=== PATIENT | female | born 1960 | race Caucasian/White ===

== ENCOUNTER → 2016-05-05 | Outpatient (CLI) | payer BC ==
[2016-05-05 19:11] LABS: ALT 50 U/L (9-52); AST 26 U/L (14-36); Creatine Kinase 307 U/L (30-135); GGT 18 U/L (12-43)
[2016-05-05 20:04] LABS: Hepatitis B Surface Ag Index 0.06
[2016-05-05 20:09] LABS: Hepatitis B Core IgM Index 0.04
[2016-05-05 20:21] LABS: Hepatitis C Virus IgG Index 0.01
[2016-05-05 20:23] LABS: Hepatitis C Virus IgG Ab Negative (Negative)
== END | disposition home or self-care (01) ==
LOC: MMGSC 17:12
PROVIDERS: ATTEND Family Medicine
DX: E55.9 Vitamin D deficiency, unspecified (principal); R79.89 Other specified abnormal findings of blood chemistry
CPT/HCPCS: 36415; 80074; 82306; 82550; 82977; 84450; 84460

== ENCOUNTER → 2016-06-03 | Outpatient (CLI) | payer BC ==
[2016-06-03 18:43] LABS: Basophils % (A) 1 %; CH 29.6; CHCM 32.4; Eosinophils # (A) 0.1 k/uL (0-0.7); Eosinophils % (A) 3 %; HCT 41.4 % (34.0-46.0); HDW 2.38; Luc # (Auto) 0.09; Luc % (Auto) 2; Lymphocytes # (A) 1.1 k/uL (1.0-4.8); Lymphocytes % (A) 24 %; MCH 28.9 pg (25.0-35.0); MCHC 31.4 g/dL (31.0-37.0); MCV 91.9 fL (80.0-100.0); Mean Platelet Volume 7.8; Monocytes # (A) 0.3 k/uL (0-1.0); Monocytes % (A) 6 %; Neutrophils % (A) 65 %; RBC 4.51 m/uL (3.80-5.40); RDW 12.8 % (11.5-15.5); WBC 4.6 k/uL (3.8-10.6)
[2016-06-03 19:07] LABS: ALT 57 U/L (9-52); AST 36 U/L (14-36); Alkaline Phosphatase 79 U/L (38-126); Anion Gap 10 mmol/L; Blood Urea Nitrogen 15 mg/dL (7-17); Calcium 9.2 mg/dL (8.4-10.2); Carbon Dioxide 26 mmol/L (22-30); Chloride 107 mmol/L (98-107); Cholesterol 229 mg/dL (<200); Creatine Kinase 314 U/L (30-135); Glucose 90 mg/dL (74-99); HDL Cholesterol 54 mg/dL (40-60); Non-African American GFR(MDRD) >60 (>60 ml/min/1.73 sqM); Potassium 4.8 mmol/L (3.5-5.1); Sodium 143 mmol/L (137-145); Total Bilirubin 0.7 mg/dL (0.2-1.3); Total Protein 6.8 g/dL (6.3-8.2); Triglycerides 189 mg/dL (<150)
== END | disposition home or self-care (01) ==
LOC: MMGSC 09:42
PROVIDERS: ATTEND Family Medicine
DX: Z00.00 Encounter for general adult medical examination without abnormal findings (principal); R79.89 Other specified abnormal findings of blood chemistry
CPT/HCPCS: 36415; 80053; 80061; 82550; 84439; 84443; 85025

== ENCOUNTER → 2016-09-01 | Outpatient (CLI) | payer BC ==
--- NOTE | 2016-09-07 11:32 | MM ---
Reason for exam: screening (asymptomatic). Last mammogram was performed 9 months ago. History: Patient is postmenopausal. Family history of breast cancer in maternal grandmother at age 70 and breast cancer in mother at age 80. Physical Findings: A clinical breast exam by your physician is recommended on an annual basis and results should be correlated with mammographic findings. MG 3D Screening Mammo W/Cad Bilateral CC and MLO view(s) were taken. Prior study comparison: November 21, 2015, mammogram, performed at [facility]. September 05, 2013, mammogram, performed at [facility]. September 02, 2012, mammogram, performed at [facility]. There are scattered fibroglandular densities. There is chronic nodularity bilaterally. There is no discrete abnormality. ASSESSMENT: Benign, BI-RAD 2 RECOMMENDATION: Routine screening mammogram of both breasts in 1 year.
== END | disposition home or self-care (01) ==
LOC: RADMAMWWP 14:01
PROVIDERS: ATTEND Family Medicine
DX: Z12.31 Encounter for screening mammogram for malignant neoplasm of breast (principal); Z80.3 Family history of malignant neoplasm of breast
CPT/HCPCS: 77063; G0202

== ENCOUNTER → 2017-01-08 | Outpatient (CLI) | payer BC | END | disposition home or self-care (01) | LOC: MMGSC 11:52 | PROVIDERS: ATTEND Family Medicine | DX: E55.9 Vitamin D deficiency, unspecified (principal) | CPT/HCPCS: 36415; 82306 ==

== ENCOUNTER → 2017-05-31 | Outpatient (CLI) | payer BC | END | disposition home or self-care (01) | LOC: MMGSC 17:13 | PROVIDERS: ATTEND Family Medicine | DX: N60.11 Diffuse cystic mastopathy of right breast (principal) | CPT/HCPCS: 87070; 87075; 87205 ==

== ENCOUNTER 2017-07-09 17:29 | Emergency (ER) | payer BC ==
[2017-07-09] MEDS ORDERED: SODIUM CHLORIDE 0.9% 1,000 ML IV STA (17:50)
[2017-07-09] MEDS ORDERED: ONDANSETRON 4 MG/2 ML VIAL IVP STA (17:50)
[2017-07-09] MEDS ORDERED: KETOROLAC 30 MG/ML 1 ML VIAL IVP STA (17:50)
--- NOTE | 2017-07-09 17:54 | ED ---
General Adult HPI - General Chief complaint: Back Pain/Injury Stated complaint: back pain, poss kidney stone Time Seen by Provider: 07/09/17 17:43 Source: patient, RN notes reviewed, old records reviewed Mode of arrival: ambulatory Limitations: no limitations - History of Present Illness Initial comments: This patient is a 56-year-old female presents emergency Department chief complaint of 10 days of diarrhea. She states that for the past week she's also been having some left flank pain. Patient states that she has had possibly some blood in her diarrhea. Yesterday she started having pain with urination but only occurred one time. Patient states that he's had no fever but she does feel chilled today. She states that she's not eating anything but has not had any diarrhea today. - Related Data Home Medications Medication Instructions Recorded Confirmed Albuterol Sulfate [Proair Hfa] 1 - 2 puff INHALATION RT-Q6H PRN 07/09/17 Green Tea Casselberry Extract [Green Tea 150 mg PO DAILY 07/09/17 07/09/17 Extract] Multivitamin [Multivitamins Adult 1 tab PO DAILY 07/09/17 07/09/17 Gummies] Omeprazole 20 mg PO DAILY 07/09/17 07/09/17 Ubidecarenone [Co Q-10] 100 mg PO DAILY 07/09/17 07/09/17 Vitamin B Complex 1 cap PO DAILY 07/09/17 07/09/17 Previous Rx's Medication Instructions Recorded Cephalexin [Keflex] 500 mg PO Q6HR #28 cap 07/09/17 Allergies Allergy/AdvReac Type Severity Reaction Status Date / Time Sulfa (Sulfonamide Allergy Unknown Verified 07/09/17 17:59 Antibiotics) Review of Systems ROS Statement: Those systems with pertinent positive or pertinent negative responses have been documented in the HPI. ROS Other: All systems not noted in ROS Statement are negative. Past Medical History Past Medical History: Asthma History of Any Multi-Drug Resistant Organisms: None Reported Past Surgical History: Adenoidectomy, Appendectomy, Tonsillectomy Additional Past Surgical History / Comment(s): ovarian cyst Past Psychological History: No Psychological Hx Reported Smoking Status: Former smoker Past Alcohol Use History: None Reported Past Drug Use History: None Reported General Exam - General Exam Comments Initial Comments: 56-year-old female. No acute distress. Limitations: no limitations General appearance: alert, in no apparent distress Head exam: Present: atraumatic, normocephalic, normal inspection Eye exam: Present: normal appearance, PERRL, EOMI. Absent: scleral icterus, conjunctival injection, periorbital swelling ENT exam: Present: normal exam, mucous membranes moist Neck exam: Present: normal inspection. Absent: tenderness, meningismus, lymphadenopathy Respiratory exam: Present: normal lung sounds bilaterally. Absent: respiratory distress, wheezes, rales, rhonchi, stridor Cardiovascular Exam: Present: regular rate, normal rhythm, normal heart sounds. Absent: systolic murmur, diastolic murmur, rubs, gallop, clicks GI/Abdominal exam: Present: soft, tenderness (Left lower quadrant tenderness), normal bowel sounds. Absent: distended, guarding, rebound, rigid Back exam: Present: CVA tenderness (L). Absent: normal inspection Neurological exam: Present: alert, oriented X3, CN II-XII intact Psychiatric exam: Present: normal affect, normal mood Skin exam: Present: warm, dry, intact, normal color. Absent: rash Course Vital Signs 07/09/17 07/09/17 07/09/17 17:39 19:17 20:29 Temperature 97.1 F L 98.5 F Pulse Rate 62 54 L 57 L Respiratory 20 18 16 Rate Blood Pressure 124/59 122/55 121/57 O2 Sat by Pulse 98 99 98 Oximetry Medical Decision Making - Medical Decision Making This patient is a 56-year-old female presents emergency Department chief complaint of 10 days of diarrhea. She states that for the past week she's also been having some left flank pain. Patient was gieven IV fluids and labs obtained. She has had no diarrhea in ED. Patient has minimal left flank tenderness. PAtient labs show uti with muliple WBC. No blood in urine. Discussed possibility of diverticulitis vs renal stone. Discussed completing abdomen adn pelvis CT without contrast. No evidence of stone, there is some mild inflammation consistent with gastroenteritis. At this time given Rocephin for UTI. WBC and CMP within normal limits. Discussed antibiotics for UTI and follow up instructions. REturn parameters discussed. - Lab Data Result diagrams: 07/09/17 18:15 07/09/17 18:15 Lab Results 07/09/17 07/09/17 07/09/17 Range/Units 18:15 18:15 18:15 WBC 7.4 (3.8-10.6) k/uL RBC 4.72 (3.80-5.40) m/uL Hgb 14.0 (11.4-16.0) gm/dL Hct 41.2 (34.0-46.0) % MCV 87.4 (80.0-100.0) fL MCH 29.7 (25.0-35.0) pg MCHC 34.0 (31.0-37.0) g/dL RDW 12.8 (11.5-15.5) % Plt Count 240 (150-450) k/uL Neutrophils % 67 % Lymphocytes % 24 % Monocytes % 5 % Eosinophils % 3 % Basophils % 0 % Neutrophils # 4.9 (1.3-7.7) k/uL Lymphocytes # 1.8 (1.0-4.8) k/uL Monocytes # 0.4 (0-1.0) k/uL Eosinophils # 0.2 (0-0.7) k/uL Basophils # 0.0 (0-0.2) k/uL Sodium 141 (137-145) mmol/L Potassium 4.0 (3.5-5.1) mmol/L Chloride 105 (98-107) mmol/L Carbon Dioxide 27 (22-30) mmol/L Anion Gap 9 mmol/L BUN 18 H (7-17) mg/dL Creatinine 0.70 (0.52-1.04) mg/dL Est GFR (CKD-EPI)AfAm >90 (>60 ml/min/1.73 sqM) Est GFR (CKD-EPI)NonAf >90 (>60 ml/min/1.73 sqM) Glucose 85 (74-99) mg/dL Calcium 9.3 (8.4-10.2) mg/dL Total Bilirubin 0.4 (0.2-1.3) mg/dL AST 27 (14-36) U/L ALT 29 (9-52) U/L Alkaline Phosphatase 78 (38-126) U/L Total Protein 7.0 (6.3-8.2) g/dL Albumin 4.2 (3.5-5.0) g/dL Amylase 42 (30-110) U/L Lipase 143 (23-300) U/L Urine Color Light Yellow Urine Appearance Clear (Clear) Urine pH 6.0 (5.0-8.0) Ur Specific [place] 1.011 (1.001-1.035) Urine Protein Negative (Negative) Urine Glucose (UA) Negative (Negative) Urine Ketones Negative (Negative) Urine Blood Negative (Negative) Urine Nitrite Negative (Negative) Urine Bilirubin Negative (Negative) Urine Urobilinogen <2.0 (<2.0) mg/dL Ur Leukocyte Esterase Large H (Negative) Urine RBC 1 (0-5) /hpf Urine WBC 77 H (0-5) /hpf Ur Squamous Epith Cells <1 (0-4) /hpf Urine Mucus Rare H (None) /hpf Disposition Clinical Impression: UTI (urinary tract infection), Gastroenteritis Disposition: HOME SELF-CARE Condition: Good Instructions: Urinary Tract Infection in Women (ED), Gastroenteritis (ED) Additional Instructions: and advised to rest, remain hydrated. Slowly advanced her diet to bananas rice applesauce and toast. Then introduce foods slowly afterwards. Patient should take the medication as prescribed. Motrin Tylenol for pain. Heating pads. Return to emergency department if any alarming signs or symptoms occur. Prescriptions: Cephalexin [Keflex] 500 mg PO Q6HR #28 cap Referrals: Martina Temple MD [Primary Care Provider] - 1-2 days Time of Disposition: 20:19
[2017-07-09 18:40] LABS: Basophils % (A) 0 %; Eosinophils # (A) 0.2 k/uL (0-0.7); Eosinophils % (A) 3 %; HCT 41.2 % (34.0-46.0); Lymphocytes # (A) 1.8 k/uL (1.0-4.8); Lymphocytes % (A) 24 %; MCH 29.7 pg (25.0-35.0); MCV 87.4 fL (80.0-100.0); Mean Platelet Volume 6.8; Monocytes # (A) 0.4 k/uL (0-1.0); Monocytes % (A) 5 %; Neutrophils # (A) 4.9 k/uL (1.3-7.7); Neutrophils % (A) 67 %; Platelet Count 240 k/uL (150-450); RBC 4.72 m/uL (3.80-5.40); RDW 12.8 % (11.5-15.5); WBC 7.4 k/uL (3.8-10.6)
[2017-07-09 18:44] LABS: Appearance,Urine Clear (Clear); Bilirubin,Urine Negative (Negative); Blood,Urine Negative (Negative); Color,Urine Light Yellow; Glucose,Urine (UA) Negative (Negative); Ketones,Urine Negative (Negative); Leukocyte Esterase,Urine Large (Negative); Mucus,Urine Rare /hpf; Nitrite,Urine Negative (Negative); Protein,Urine Negative (Negative); RBC,Urine 1 /hpf (0-5); Specific Gravity,Urine 1.011 (1.001-1.035); Squamous Epithelial Cell,Urine <1 /hpf (0-4); Urobilinogen,Urine <2.0 mg/dL (<2.0); WBC,Urine 77 /hpf (0-5)
[2017-07-09 18:58] LABS: ALT 29 U/L (9-52); AST 27 U/L (14-36); Albumin 4.2 g/dL (3.5-5.0); Alkaline Phosphatase 78 U/L (38-126); Amylase 42 U/L (30-110); Anion Gap 9 mmol/L; Blood Urea Nitrogen 18 mg/dL (7-17); Calcium 9.3 mg/dL (8.4-10.2); Carbon Dioxide 27 mmol/L (22-30); Chloride 105 mmol/L (98-107); Glucose 85 mg/dL (74-99); Lipase 143 U/L (23-300); Sodium 141 mmol/L (137-145); Total Bilirubin 0.4 mg/dL (0.2-1.3)
--- NOTE | 2017-07-09 19:58 | CT ---
EXAMINATION TYPE: CT abdomen pelvis wo con DATE OF EXAM: 07/09/2017 COMPARISON: NONE HISTORY: Left side flank pain and diarrhea. CT DLP: 1055 mGycm. Automated exposure control for dose reduction was used. TECHNIQUE: Helical acquisition of images was performed from the lung bases through the pelvis. FINDINGS: KIDNEYS URETERS AND BLADDER: There is no hydronephrosis or hydroureter. No calcifications in the kidn eys or ureters or bladder. PERITONEAL CAVITY: No pneumoperitoneum or peritoneal fluid. HOLLOW VISCERA OF THE ABDOMEN AND PELVIS: The stomach and duodenum and jejunum and ileum and colon ar e unremarkable in and of themselves. However, there are is a geographic zone of mildly enlarged lymph nodes within the root of the small bowel mesentery, centered just left of midline anterior to the le ft kidney. These findings can correlate with a clinical diagnosis of gastroenteritis. SOLID VISCERA OF THE ABDOMEN AND PELVIS: No visceromegaly. No focal lesions other than a 1.5 cm simpl e hepatic cyst in the lower most right hepatic lobe. SKELETAL STRUCTURES: No focal lesions. IMPRESSION: SUBTLE JEJUNAL MESENTERIC FINDINGS, WHICH CAN BE SEEN WITH A CLINICAL DIAGNOSIS OF GASTROENTERITIS.
[2017-07-09] MEDS ORDERED: cefTRIAXone IN SWFI 1,000 MG/10 ML SYRINGE IVP STA (20:17)
[2017-07-09 20:29] VITALS: BP 121/57; PULSE 57; RESP 16; TEMP 98.5
== END 2017-07-09 20:46 | disposition home or self-care (01) ==
LOC: EC 17:29
DX: K52.9 Noninfective gastroenteritis and colitis, unspecified (principal); N39.0 Urinary tract infection, site not specified; Z90.49 Acquired absence of other specified parts of digestive tract; Z87.891 Personal history of nicotine dependence; Z79.899 Other long term (current) drug therapy; Z88.2 Allergy status to sulfonamides; Z87.42 Personal history of other diseases of the female genital tract
CPT/HCPCS: 36415; 80053; 82150; 83690; 85025; 81001; 74176; 99284; 96374; 96375 ×2; 96361 ×2; J2405; J0696; J1885

== ENCOUNTER 2022-09-02 10:37 | Day surgery (SDC) | payer OTHER, BC ==
[2022-08-31 14:40] VITALS: BMI 31.8
--- NOTE | 2022-09-01 21:20 | HP ---
HISTORY AND PHYSICAL DATE OF SCHEDULED SURGERY: 09/02/2022. HISTORY OF PRESENT ILLNESS: Lois Claudio is a 61-year-old patient seen with progressive right knee pain. We discussed options for treatment. She elected to proceed with right knee arthroscopy. Consent was obtained. PAST MEDICAL HISTORY: Hypertension, hyperlipidemia, asthma, osteoarthritis. PAST SURGICAL HISTORY: Tonsillectomy, appendectomy. DAILY MEDICATIONS: 1. Prilosec. 2. ProAir. 3. Meloxicam. 4. Atorvastatin. 5. Symbicort. ALLERGIES: Sulfa. SOCIAL HISTORY: She denies current tobacco use. PHYSICAL EVALUATION OF THE RIGHT KNEE: Range of motion is 0 to 135 degrees. Mild effusion. Tenderness medial joint line. Positive medial Gaby's. Tenderness along the lateral joint line. Ligaments stable. Hip rotation without pain. Distal neurovascular exam is intact. RADIOGRAPHS: Right knee radiographs revealed mild medial moderate patellofemoral compartment osteoarthritis. Right knee MRI revealed medial meniscal tear, lateral meniscal tear, effusion. IMPRESSION: 1. Internal derangement of right knee with medial and lateral meniscal tears. 2. Hyperlipidemia. 3. Hypertension. 4. Asthma. PLAN: Right knee arthroscopy with partial medial/lateral meniscectomy and debridement. MMODL / IJN: [id number] /
[~2022-09-02 10:37] MED LIST: DEXAMETHASONE SOD PHOSPHATE 4 MG/ML 1 ML VIAL IV ONE; LACTATED RINGERS 1,000 ML IV SCH; MIDAZOLAM 2 MG/2 ML VIAL IV PRN; ONDANSETRON 4 MG/2 ML VIAL IVP ONE
[2022-09-02] MEDS ORDERED: fentaNYL (PF) 50 MCG/ML 2 ML AMP ONE (11:52)
[2022-09-02] MEDS ORDERED: PROPOFOL 10 MG/ML 20 ML VIAL IV ONE (11:52)
[2022-09-02] MEDS ORDERED: HYDROmorphone (PF) 1 MG/ML ONE (11:52)
[2022-09-02] MEDS ORDERED: LIDOCAINE 2% INJ 20 MG/ML (2 ML VIAL) ONE (11:52)
[2022-09-02] MEDS ORDERED: MIDAZOLAM 2 MG/2 ML VIAL ONE (11:52)
[2022-09-02] MEDS ORDERED: BUPIVACAINE (PF) 0.25% 30 ML VIAL SQ ONE ×2 (11:56→12:24)
[2022-09-02 12:33] VITALS: TEMP 97.3
--- NOTE | 2022-09-02 12:37 | P.OP ---
Date of Procedure: 09/02/22 Preoperative Diagnosis: Internal derangement right knee Postoperative Diagnosis: 1. Tear medial and lateral meniscus right knee 2. Grade 4 chondromalacia medial femoral condyle right knee 3. Reactive synovitis medial, lateral and suprapatellar compartments right knee Procedure(s) Performed: 1. Arthroscopic partial medial and lateral meniscectomy right knee 2. Arthroscopic microfracture medial femoral condyle right knee 3. Arthroscopic partial synovectomy medial, lateral and suprapatellar compartments right knee 4. Arthroscopic chondroplasty medial femoral condyle right knee Anesthesia: CARMELLAA, local Surgeon: Andrew Davey Estimated Blood Loss (ml): 7 Pathology: none sent Condition: stable Disposition: PACU Indications for Procedure: 61-year-old patient was seen with progressive right knee pain. After having treatment options discussed, she elected to proceed with arthroscopy. Operative Findings: see description of procedure Description of Procedure: Patient was taken to the operative suite. Patient underwent a general anesthetic by the department of anesthesia. Patient was given preoperative antibiotics. The right lower extremity was placed in a well-padded arthroscopic leg ruiz. The right leg was prepped and draped in the normal sterile orthopedic fashion. A lateral parapatellar and suprapatellar incision was made. Trochars were inserted. Arthroscopy was initiated. Suprapatellar pouch revealed diffuse thick reactive synovitis. The patellofemoral joint appeared to articulate congruently. There was grade 1/2 chondromalacia of the medial facet patella with no significant osteochondral tears.. The scope was guided into the medial gutter. No loose bodies or plica were identified. The scope was then guided into the medial compartment. A medial parapatellar incision was made. Trocar inserted followed by probe. There was a radial tear posterior horn medial meniscus. There were grade 3/4 chondromalacia changes medial femoral condyle with some large osteochondral flap tears. There was thick reactive synovitis anteriorly. I performed a partial Scope and probe were the medial meniscectomy getting down to stable meniscal tissue. I performed a chondroplasty of the medial femoral condyle getting down to stable osteochondral tissue. I performed a partial synovectomy decompressing the reactive synovitis. I noted an area of exposed bone along the anterior weightbearing surface medial femoral condyle measuring about 1 cm. I introduced a microfracture awl. I performed a microfracture tear of exposed bone medial femoral condyle penetrating the bone with resultant bleeding at the microfracture site. The residual meniscus was probed and was found to be stable. The residual osteochondral surface was stable. There was good decompression of the synovitis. The scope was guided into the intercondylar notch. Cruciates were identified, probed and found to be stable. The scope and probe were then guided into lateral compartment. there was a radial tear mid body lateral meniscus. There was no slipping chondromalacia. There was thick reactive synovitis anteriorly. I performed a partial lateral meniscectomy getting down to stable meniscal tissue. I performed a partial synovectomy. Shaver was now removed. The residual meniscus was probed and was found to be stable. There was good decompression of the synovitis. The scope was in guided back into the suprapatellar compartment. eye introduced a motorized shaver into the suprapatellar compartment. I debrided some piecemeal fragments of meniscus that I encountered. I performed a partial synovectomy. The shaver was now removed. There was good decompression of the synovitis. I took one more look around the entire knee, no residual debris. Instruments were now removed from the joint. The joint was infiltrated with .25% Marcaine. Steri-Strips were applied to the portal sites. Sterile dressings were applied. The patient was placed into a HUDSON hose. No tourniquet was utilized. The patient was awakened, transferred to a bed and taken to recovery stable satisfactory condition.
[2022-09-02 13:41] VITALS: BP 124/78; PULSE 60; RESP 16
[2022-09-02] MEDS ORDERED: HYDROcodone/APAP 5-325MG 1 EACH TAB ONE (13:46)
[2022-09-02] MEDS ORDERED: ONDANSETRON 4 MG/2 ML VIAL ONE (14:14)
[2022-09-03] MEDS ORDERED: HYDROmorphone 0.5 MG/0.5 ML SYRINGE IVP PRN (07:00)
== END 2022-09-02 14:56 | disposition home or self-care (01) ==
LOC: OR 10:37
PROVIDERS: ATTEND Orthopaedic Surgery
DX: S83.241A Other tear of medial meniscus, current injury, right knee, initial encounter (principal); S83.281A Other tear of lateral meniscus, current injury, right knee, initial encounter; M94.261 Chondromalacia, right knee; M65.861 Other synovitis and tenosynovitis, right lower leg; I10 Essential (primary) hypertension; E78.5 Hyperlipidemia, unspecified; J45.909 Unspecified asthma, uncomplicated; Z87.891 Personal history of nicotine dependence; K21.9 Gastro-esophageal reflux disease without esophagitis; Z88.2 Allergy status to sulfonamides; Z79.1 Long term (current) use of non-steroidal anti-inflammatories (NSAID); Z79.51 Long term (current) use of inhaled steroids; Z79.899 Other long term (current) drug therapy; M17.11 Unilateral primary osteoarthritis, right knee
CPT/HCPCS: 29879; 29880; J2250; J1100; J0690; J2405; J3010; J1170 ×2; J2704; J2001

== ENCOUNTER 2022-10-09 11:09 | Day surgery (SDC) | payer BC, OTHER ==
[2022-10-07 14:18] VITALS: BMI 31.8
[~2022-10-09 11:09] MED LIST changes: -DEXAMETHASONE SOD PHOSPHATE 4 MG/ML 1 ML VIAL IV ONE; -MIDAZOLAM 2 MG/2 ML VIAL IV PRN; -ONDANSETRON 4 MG/2 ML VIAL IVP ONE
[2022-10-09] MEDS ORDERED: LACTATED RINGERS 1,000 ML IV ONE (11:38)
[2022-10-09 11:39] VITALS: TEMP 97.8
[2022-10-09] MEDS ORDERED: PROPOFOL 10 MG/ML 20 ML VIAL IV ONE (12:08)
[2022-10-09] MEDS ORDERED: LIDOCAINE 2% INJ 20 MG/ML (2 ML VIAL) ONE (12:08)
--- NOTE | 2022-10-09 12:35 | P.PCN ---
Date of Procedure: 10/09/22 Procedure(s) Performed: Brief history: Patient is a pleasant 62-year-old white female scheduled for an elective upper endoscopy as well as colonoscopy as a part of evaluation of long-standing history of GERD and screening for colon cancer Procedure performed: Esophagogastroduodenoscopy with biopsy Colonoscopy with biopsy Preoperative diagnosis: Long-standing history of GERD and screening for colon cancer Anesthesia: MAC Procedure: After informed consent was obtained from the patient was brought into the endoscopy unit and IV sedation was administered by anesthesia under continuous monitoring. Initially upper endoscopy was done. The Olympus GF 160 video endoscope was inserted inserted into the mouth and esophagus intubated without any difficulty and was gradually advanced into the stomach and duodenum and carefully examined. The bulb and second part of the duodenum appeared normal. The scope was then withdrawn into the stomach adequately insufflated with air and upon careful examination the antrum and body, cardia and fundus appeared normal. Small gastric polyps noted in the gastric body which were biopsied. The scope was then withdrawn into the esophagus. small hiatal hernia noted. The GE junction was located at 38 cm to the incisors. It appeared regular with no erythema erosions or ulcerations. Rest of the esophagus appeared normal. Patient tolerated the procedure well. At this time the patient continued to remain sedation. Initial digital rectal examination was normal. Olympus CF 160 video colonoscope was then inserted into the rectum and gradually advanced to the cecum without any difficulty. Careful examination was performed as the scope was gradually being withdrawn. The prep was excellent. The cecum, ascending colon, transverse colon, descending colon, sigmoid colon and rectum appeared normal. Rectum there was a 4 mm sessile polyp that was removed by cold biopsy Retroflexion was performed in the rectum and no lesions were noted. Patient tolerated the procedure well. Impression: 1. Upper endoscopy revealed small hiatal hernia and multiple gastric polyps. No evidence of esophagitis or Jones's esophagus 2. Colonoscopy revealed a 4 mm rectal polyp status post cold biopsy Recommendations: Findings of this examination were discussed with the patient as well Alejandro family. She was advised to follow with the biopsy results. Continue with Prilosec 20 mg daily and follow antireflux measures. If the biopsy results adenoma she can have a repeat colonoscopy in 5 yearss
[2022-10-09 13:29] VITALS: BP 119/70; PULSE 66; RESP 20
== END 2022-10-09 13:30 | disposition home or self-care (01) ==
LOC: ORWHC2ENDO 11:09
PROVIDERS: ATTEND Internal Medicine Gastroenterology
DX: Z12.11 Encounter for screening for malignant neoplasm of colon (principal); D12.8 Benign neoplasm of rectum; K21.9 Gastro-esophageal reflux disease without esophagitis; K44.9 Diaphragmatic hernia without obstruction or gangrene; E78.5 Hyperlipidemia, unspecified; J45.909 Unspecified asthma, uncomplicated; Z88.2 Allergy status to sulfonamides; Z79.1 Long term (current) use of non-steroidal anti-inflammatories (NSAID); Z79.51 Long term (current) use of inhaled steroids; Z79.899 Other long term (current) drug therapy
CPT/HCPCS: 88305; 45380; 43239; J2704; J2001

== ENCOUNTER → 2023-04-14 | Outpatient (CLI) | payer BC ==
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
== END | disposition home or self-care (01) ==
LOC: RADMRIMAIN 20:45
PROVIDERS: ATTEND Orthopaedic Surgery
DX: M17.11 Unilateral primary osteoarthritis, right knee (principal); M25.461 Effusion, right knee; R60.0 Localized edema

== ENCOUNTER 2024-02-21 09:27 | Day surgery (SDC) | payer MEDICARE, BC ==
[2024-02-17 13:08] VITALS: BMI 32.5
[~2024-02-21 09:27] MED LIST changes: -LACTATED RINGERS 1,000 ML IV SCH; +MIDAZOLAM 2 MG/2 ML VIAL IV PRN; +Pre Op ABX Message 1 EACH MISC MISCELLANE ONE
[2024-02-21] MEDS: ACETAMINOPHEN TAB 500 MG TAB PO PRN (10:21)
[2024-02-21] MEDS: LACTATED RINGERS 1,000 ML IV SCH (10:21)
[2024-02-21] MEDS: DEXAMETHASONE SOD PHOSPHATE 4 MG/ML 1 ML VIAL IV ONE (10:22)
[2024-02-21] MEDS: ONDANSETRON 4 MG/2 ML VIAL IVP ONE (10:22)
[2024-02-21] MEDS: HEPARIN SODIUM,PORCINE 5,000 UNIT/ML 1 ML VIAL SQ PRN (10:25)
[2024-02-21] MEDS: IV FLUID CONTINUATION 1,000 ML IV ONE ×3 (10:26→12:05)
--- NOTE | 2024-02-21 10:27 | P.HPADDEND ---
H&P Addendum H&P Addendum Date: 02/21/24 Refer to recent history and physical sent from office in chart. Patient called back to schedule muscle biopsy. She was unable to find her previous reports. Will proceed with left quadriceps muscle biopsy at this time. Apparently there was some issue with the lab/pathology department not having the kit available. They notified us that it was okay to proceed wrapping the specimen in saline moistened gauze and as soon as the kit arrives around noon or so they will handle the specimen appropriately.
[2024-02-21] MEDS ORDERED: PROPOFOL 10 MG/ML 20 ML VIAL IV ONE (10:38)
[2024-02-21] MEDS ORDERED: LIDOCAINE 1% INJ 10MG/ML (20 ML MDV) ONE (10:38)
[2024-02-21] MEDS ORDERED: fentaNYL (PF) 50 MCG/ML 2 ML AMP ONE (10:38)
[2024-02-21] MEDS: BUPIVACAINE (PF) 0.25% 30 ML VIAL SQ ONE ×3 (10:54→11:02)
[2024-02-21 11:36] VITALS: TEMP 98.2
[2024-02-21] MEDS: HYDROmorphone 0.5 MG/0.5 ML SYRINGE IVP PRN (11:38)
[2024-02-21] MEDS ORDERED: NALOXONE 0.4 MG/ML 1 ML VIAL IV PRN (11:41)
--- NOTE | 2024-02-21 11:43 | P.OP ---
Date of Procedure: 02/21/24 Procedure(s) Performed: PREOPERATIVE DIAGNOSIS: Possible myositis, muscle weakness POSTOPERATIVE DIAGNOSIS: Same PROCEDURE: Left quadriceps muscle biopsy SURGEON: Jazmine EBL: Franklyn Milan ANESTHESIA: Gen. COMPLICATIONS: None OPERATIVE PROCEDURE: Patient was placed on the operative table in supine position. The patient was then placed under general anesthesia. Left thigh was prepped and draped sterilely. A longitudinal incision was made overlying the mid aspect of the left thigh. The subcutaneous tissues were divided using electrocautery. The fascia was then divided as well. 3 separate pieces of muscle were removed. 2 measuring about 1.5 x 1 cm and an additional 1.5 x 0.5 cm piece. These were sent wrapped in saline moistened Telfa to pathology as a fresh specimen. Pathology team has stated they will put this in the appropriate containers with the muscle biopsy kit when it arrives. The fascia was reapproximated using a running 3-0 Vicryl stitch. Subcutaneous tissues closed using 3-0 Vicryl sutures. Skin closed using a 4-0 Monocryl sutures. Skin glue was applied. DISPOSITION: Stable to recovery room
[2024-02-21] MEDS: HYDROcodone/APAP 5-325MG 1 EACH TAB PO PRN (12:36)
[2024-02-21 13:14] VITALS: RESP 18
[2024-02-21 13:17] VITALS: BP 117/70; PULSE 58
== END 2024-02-21 13:25 | disposition home or self-care (01) ==
LOC: OR 09:27
PROVIDERS: ATTEND Surgery
DX: M62.81 Muscle weakness (generalized) (principal)
CPT/HCPCS: 20205; J1644; J1100; J2405; J2003; J3010; J2704; J1171; J0665